=== PATIENT | male | born 1945 | race Caucasian/White ===

== ENCOUNTER 2018-09-16 08:59 | Day surgery (SDC) | payer MEDICARE, BC ==
[~2018-09-16 08:59] MED LIST: PROPOFOL 500 MG/50 ML EMU IV ONE
[2018-09-16] MEDS ORDERED: PROPOFOL 10 MG/ML 200 MG/20 ML EMU IV ONE ×2 (10:45→11:00)
[2018-09-16 11:11] VITALS: TEMP 97.4
[2018-09-16 11:47] VITALS: BP 195/90; PULSE 57; RESP 20; O2SAT 98
== END 2018-09-16 11:59 | disposition home or self-care (01) | DRG 844 ==
LOC: SURG 08:59
PROVIDERS: ATTEND Internal Medicine Gastroenterology
DX: Z85.038 Personal history of other malignant neoplasm of large intestine (principal); K57.32 Diverticulitis of large intestine without perforation or abscess without bleeding; Z86.010 Personal history of colon polyps; Z12.11 Encounter for screening for malignant neoplasm of colon; L81.8 Other specified disorders of pigmentation; K63.5 Polyp of colon; D12.7 Benign neoplasm of rectosigmoid junction; K64.8 Other hemorrhoids
CPT/HCPCS: J2704